=== PATIENT | female | born 1975 | race Caucasian/White ===

== ENCOUNTER 2024-07-14 20:29 | Emergency (ER) | payer SELFPAY ==
[2024-07-14] VITALS (9 sets, daily range): BP systolic 142–194; BP diastolic 94–122
[~2024-07-14] VITALS: Ht 162.6 cm; Wt 63.5 kg
[2024-07-14] MEDS ORDERED: DiphenhydrAMINE HCL 50 MG/ML SDV IV ONE (20:40)
[2024-07-14] MEDS ORDERED: oxyCODONE 5MG/ ACETAMINOPHEN 325MG TAB PO ONE (22:10)
[2024-07-14] MEDS ORDERED: BENADRYL25 M1 PO (22:11)
[2024-07-14] MEDS ORDERED: DECADRON4 MG PO (22:11)
[2024-07-14] MEDS ORDERED: PERCOCET 5/325M1 TAB PO ×2 (22:11→22:19)
== END 2024-07-14 22:00 | disposition home or self-care (01) | DRG 812 ==
LOC: ED 20:29
DX: T80.89XA Other complications following infusion, transfusion and therapeutic injection, initial encounter (principal); M79.89 Other specified soft tissue disorders; Y84.8 Other medical procedures as the cause of abnormal reaction of the patient, or of later complication, without mention of misadventure at the time of the procedure; Y92.239 Unspecified place in hospital as the place of occurrence of the external cause; F17.210 Nicotine dependence, cigarettes, uncomplicated
CPT/HCPCS: J1100; J1200